=== PATIENT | male | born 1945 | race Caucasian/White ===

== ENCOUNTER 2020-01-28 08:11 | Emergency (ER) | payer BC, MEDICARE ==
--- NOTE | 2020-01-28 15:44 | ER ---
REASON FOR EMERGENCY ROOM VISIT: Foreign body, left eye. 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 This occurred on Thursday, 5 days ago and it bothered him through the night. He was seen the following day by Dr. Rodgers, who removed the shaving from his cornea and because of the concern of some residual rust, he used a bur bit to clean out the edges of where the foreign body was lodged. He placed the patient on a topical antibiotic and he was discharged. He did well and was symptom-free by the following day and , but yesterday began to have some irritation and persistent redness combined with a return of a foreign body sensation in his left eye. It has bothered him, even worse this morning and he has some photophobia involving this. He does not actually have pain per se, but he does have a formed persistent irritating foreign body sensation. PAST MEDICAL HISTORY: Reviewed. MEDICATIONS: Reviewed. ALLERGIES: NONE TO MEDICATIONS. PHYSICAL EXAMINATION: GENERAL: He is a pleasant, alert man in no acute distress. HEENT: Examination of his eyes, his right eye appears normal with no conjunctival injection. His left eye shows that he has conjunctival injection. I used magnification and then everted both upper and lower lids and could not see any evidence of foreign body. I then applied topical tetracaine to his left eye and after a few minutes inserted a fluorescein strip and examined this under magnification with and without a blue light. I did see a very small punctate area in his central cornea of his left eye and that was fairly well delineated. It almost appears to be some residual foreign body present, although I cannot definitely see it. IMPRESSION: Possible residual foreign body of left eye versus infection. PLAN: I spoke to Dr. Julian, the global marketing operations manager on-call in [place], who agreed to see him at 3 p.m. this afternoon. The global marketing operations manager's name, address and phone number were given to the patient with directions as to how to get to her office. She said she would be willing to see him at 3 p.m. this afternoon. The patient agrees with this plan and feels comfortable making this drive. All questions were answered. SABRA/JENNY /[id number]
== END 2020-01-28 11:00 | disposition home or self-care (01) ==
LOC: LB.ED 08:11
DX: Z01.00 Encounter for examination of eyes and vision without abnormal findings (principal)
CPT/HCPCS: 99282; 99283

== ENCOUNTER 2024-07-14 09:53 | Day surgery (SDC) | payer BC ==
[~2024-07-14 09:53] MED LIST: Metoclopramide 10 MG/2 ML SDV IV PRN
[2024-07-14] MEDS: Sodium Chloride 0.9% 1,000 ML IV SCH (10:22)
[2024-07-14] MEDS ORDERED: Propofol 200 MG/20 ML SDV ONE (11:45)
== END 2024-07-14 12:42 | disposition home or self-care (01) ==
LOC: LB.SDS 09:53
PROVIDERS: ATTEND Surgery
DX: Z12.11 Encounter for screening for malignant neoplasm of colon (principal); R19.5 Other fecal abnormalities; D12.0 Benign neoplasm of cecum; D12.2 Benign neoplasm of ascending colon; D12.3 Benign neoplasm of transverse colon; D12.4 Benign neoplasm of descending colon; K63.5 Polyp of colon; K57.30 Diverticulosis of large intestine without perforation or abscess without bleeding; E11.9 Type 2 diabetes mellitus without complications; E78.5 Hyperlipidemia, unspecified; N40.0 Benign prostatic hyperplasia without lower urinary tract symptoms; Z79.84 Long term (current) use of oral hypoglycemic drugs; Z79.899 Other long term (current) drug therapy; Z86.0100 Personal history of colon polyps, unspecified
CPT/HCPCS: 45385; 82947; 88305; J2704; J7030